=== PATIENT | male | born 2000 | race Caucasian/White ===

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

== ENCOUNTER → 2023-04-19 | Outpatient (REF) | payer OTHER ==
[~2023-04-19] MED LIST changes: -DOXY-350 PO; +DOXY-444 PO; +MONT-5 PO; -PREV15CA18 PO; +PREV15CA24 PO; -SING10TA32 PO
[2023-04-19 18:56] LABS: ALBUMIN 3.6 G/DL (3.2-5.2); BILIRUBIN,DIRECT 0.3 MG/DL (<0.4); BILIRUBIN,TOTAL 0.7 MG/DL (0.3-1.2); TOTAL PROTEIN 6.8 G/DL (5.7-8.2)
== END ==
LOC: M LABDRWAD 17:55
PROVIDERS: ATTEND Internal Medicine Pulmonary Disease
DX: R79.89 Other specified abnormal findings of blood chemistry (principal); E84.9 Cystic fibrosis, unspecified

== ENCOUNTER → 2023-05-03 | Outpatient (REF) | payer OTHER ==
[2023-05-03 21:02] LABS: ALBUMIN 3.3 G/DL (3.2-5.2); BILIRUBIN,DIRECT 0.2 MG/DL (<0.4); BILIRUBIN,TOTAL 0.6 MG/DL (0.3-1.2); TOTAL PROTEIN 7.2 G/DL (5.7-8.2)
== END ==
LOC: M LAB REF 20:44
PROVIDERS: ATTEND Nurse Practitioner Adult Health
DX: E84.9 Cystic fibrosis, unspecified (principal); R79.89 Other specified abnormal findings of blood chemistry

== ENCOUNTER → 2023-09-03 | Outpatient (REF) | payer OTHER ==
[2023-09-03 14:18] LABS: BILIRUBIN,DIRECT 0.3 MG/DL (<0.4)
== END ==
LOC: M LABDRWAD 12:30
PROVIDERS: ATTEND Nurse Practitioner Adult Health
DX: E84.9 Cystic fibrosis, unspecified (principal); R79.89 Other specified abnormal findings of blood chemistry

== ENCOUNTER → 2023-09-29 | Outpatient (REF) | payer OTHER ==
[2023-09-29 14:26] LABS: ALBUMIN 3.1 G/DL (3.2-5.2); BILIRUBIN,DIRECT 0.3 MG/DL (<0.4); BILIRUBIN,TOTAL 0.6 MG/DL (0.3-1.2); TOTAL PROTEIN 5.9 G/DL (5.7-8.2)
== END ==
LOC: M LABDRWAD 13:10
PROVIDERS: ATTEND Internal Medicine Pulmonary Disease
DX: E84.9 Cystic fibrosis, unspecified (principal); K86.89 Other specified diseases of pancreas

== ENCOUNTER 2023-10-10 06:51 | Inpatient (IN) | payer OTHER ==
[~2023-10-10] VITALS: Ht 167.6 cm; Wt 59.4 kg
[~2023-10-10 06:51] MED LIST changes: +DOXY-440 PO; -DOXY-444 PO
[2023-10-10] MEDS: ONDANSETRON 4MG 2ML VIAL IV ONE ×2 (07:33→11:33)
[2023-10-10] MEDS: NS 1,000 ML IV ONE (07:33)
[2023-10-10 07:38] LABS: BASO % 0.3 % (0.0-1.0); EOS # 0.1 10^3/uL (0.0-0.5); EOS % 1.3 % (0.0-3.0); HEMOGLOBIN 17.1 g/dl (13.5-17.5); LYMPH # 1.6 10^3/uL (1.5-5.0); LYMPH % 16.5 % (24.0-44.0); MEAN CORPUSCULAR HEMOGLOBIN 31.1 pg (27.0-33.0); MEAN CORPUSCULAR HGB CONC 36.4 g/dl (32.0-36.5); MEAN CORPUSCULAR VOLUME 85.5 fl (80.0-96.0); MONO # 0.7 10^3/uL (0.0-0.8); MONO % 6.9 % (2.0-8.0); NEUTROPHILS # 7.1 10^3/uL (1.5-8.5); NEUTROPHILS % 74.7 % (36.0-66.0); PLATELET COUNT, AUTOMATED 291 10^3/uL (150-450); WHITE BLOOD COUNT 9.5 10^3/uL (4.0-10.0)
[2023-10-10] MEDS: KETOROLAC 30 MG/ML 1ML VIAL IV ONE (07:58)
[2023-10-10 08:04] LABS: LIPASE 13 U/L (12-53)
[2023-10-10 08:08] LABS: ALBUMIN 3.8 G/DL (3.2-5.2); ALKALINE PHOSPHATASE 179 U/L (46-116); ALT/SGPT 163 U/L (7.0-40); AST/SGOT 30 U/L (<34); BILIRUBIN,DIRECT 0.5 MG/DL (<0.4); BILIRUBIN,TOTAL 1.3 MG/DL (0.3-1.2)
[2023-10-10 08:13] LABS: TOTAL PROTEIN 6.7 G/DL (5.7-8.2)
[2023-10-10 08:31] LABS: BLOOD UREA NITROGEN 14 MG/DL (9-23); CALCIUM LEVEL 9.4 MG/DL (8.5-10.1); CARBON DIOXIDE LEVEL 28 MMOL/L (20-31); CHLORIDE LEVEL 98 MMOL/L (98-107); CREATININE FOR GFR 0.64 MG/DL (0.70-1.30); GLOMERULAR FILTRATION RATE > 60.0 (>60); GLUCOSE, FASTING 357 MG/DL (60-100); POTASSIUM SERUM 4.6 MMOL/L (3.5-5.1); SODIUM LEVEL 133 MMOL/L (136-145)
[2023-10-10] MEDS ORDERED: ISOVUE-370 76% 100ML VIAL As Ordered ONE (09:13)
[2023-10-10] MEDS ORDERED: DEXTROSE 50% 50ML SYRINGE IV PRN (11:30)
[2023-10-10] MEDS ORDERED: ONDANSETRON 4MG 2ML VIAL IV PRN (11:30)
[2023-10-10] MEDS ORDERED: GLUCAGON INJ 1MG VIAL SC PRN (11:30)
[2023-10-10] MEDS: NS 1,000 ML IV SCH (12:40)
[2023-10-10] MEDS: LEVEMIR (INSULIN DETEMIR) 1 UNITS/0.01ML SC ONE (12:41)
[2023-10-10] MEDS: INSULIN LISPRO (NovoLOG) PER UNIT SC SCH (12:51)
[2023-10-10] MEDS ORDERED: AZIT-10 GT (13:26)
[2023-10-10] MEDS ORDERED: AZIT-12 PO (13:26)
[2023-10-10] MEDS ORDERED: PREV15TA2 PO (13:32)
[2023-10-10] MEDS ORDERED: [UNRECOGNIZED DRUG - CODE] INH (13:34)
[2023-10-10 15:05] VITALS: BP 123/79; TEMP 98.6; O2SAT 98
[2023-10-10] MEDS ORDERED: [UNRECOGNIZED DRUG - CODE] IN (16:35)
[2023-10-10] MEDS ORDERED: ELEX1TAB PO (16:45)
[2023-10-10] MEDS ORDERED: INSUHUMDS SC (16:47)
[2023-10-10] MEDS ORDERED: HOME MED LIST COMPLETE! XX SCH (16:55)
[2023-10-10] MEDS: PANTOPRAZOLE 40MG VIAL IV SCH (17:15)
[2023-10-10] MEDS: MONTELUKAST 10 MG TAB PO SCH (17:47)
[2023-10-10] MEDS: KETOROLAC 30 MG/ML 1ML VIAL IV PRN (17:48)
[2023-10-10] MEDS: DORNASE INHALATION SOLN 1MG/ML 2.5 ML AMP INH SCH (19:52)
[2023-10-10] MEDS: SYMBICORT 160/4.5MCG INHALER 6GM INH SCH (19:52)
[2023-10-10 20:00] VITALS: BP 111/69; TEMP 98.8; O2SAT 98
[2023-10-10] MEDS ORDERED: DORNASE INHALATION SOLN 1MG/ML 2.5 ML AMP INH SCH (21:00)
[2023-10-10] MEDS ORDERED: LEVEMIR (INSULIN DETEMIR) 1 UNITS/0.01ML SC SCH (21:00)
[2023-10-10] MEDS: ENOXAPARIN 40MG/0.4ML SYRINGE (J1650 PER 10MG) SC SCH (21:49)
[2023-10-10] MEDS: TRIKAFTA PO SCH (21:49)
[2023-10-10] MEDS: LEVEMIR (INSULIN DETEMIR) 1 UNITS/0.01ML SC SCH (22:28)
[2023-10-11] MEDS: D5W/LR 1,000 ML IV SCH (05:50)
[2023-10-11 06:09] LABS: HEMATOCRIT 39.6 % (42.0-52.0); MEAN CORPUSCULAR HEMOGLOBIN 31.8 pg (27.0-33.0); MEAN CORPUSCULAR HGB CONC 35.9 g/dl (32.0-36.5); MEAN CORPUSCULAR VOLUME 88.6 fl (80.0-96.0); PLATELET COUNT, AUTOMATED 250 10^3/uL (150-450); RED BLOOD COUNT 4.47 10^6/uL (4.30-6.10); WHITE BLOOD COUNT 4.8 10^3/uL (4.0-10.0)
[2023-10-11 06:14] VITALS: BP 102/56; TEMP 99; O2SAT 98
[2023-10-11 06:18] LABS: HEMOGLOBIN 14.2 g/dl (13.5-17.5)
[2023-10-11 06:45] LABS: BLOOD UREA NITROGEN 19 MG/DL (9-23); CALCIUM LEVEL 7.8 MG/DL (8.5-10.1); CARBON DIOXIDE LEVEL 29 MMOL/L (20-31); CHLORIDE LEVEL 110 MMOL/L (98-107); CREATININE FOR GFR 0.84 MG/DL (0.70-1.30); GLOMERULAR FILTRATION RATE > 60.0 (>60); GLUCOSE, FASTING 63 MG/DL (60-100); MAGNESIUM LEVEL 1.6 MG/DL (1.8-2.4); POTASSIUM SERUM 3.7 MMOL/L (3.5-5.1); SODIUM LEVEL 146 MMOL/L (136-145)
[2023-10-11] MEDS: AZITHROMYCIN 250MG TABLET PO SCH (08:32)
[2023-10-11] MEDS: TRIKAFTA PO SCH (08:32)
[2023-10-11 14:00] VITALS: BP 102/59; TEMP 98.6; O2SAT 95
[2023-10-11] MEDS: INSULIN LISPRO (NovoLOG) PER UNIT SC SCH ×2 (17:51→21:24)
[2023-10-11 21:00] VITALS: BP 103/60; TEMP 98.2; O2SAT 95
[2023-10-11] MEDS: LEVEMIR (INSULIN DETEMIR) 1 UNITS/0.01ML SC SCH (21:24)
[2023-10-12] MEDS: GLUCOSE 4 GM CHEW PO PRN (07:03)
[2023-10-12 07:16] LABS: BASO % 0.2 % (0.0-1.0); EOS # 0.1 10^3/uL (0.0-0.5); EOS % 1.7 % (0.0-3.0); HEMATOCRIT 38.1 % (42.0-52.0); HEMOGLOBIN 13.3 g/dl (13.5-17.5); LYMPH # 1.6 10^3/uL (1.5-5.0); LYMPH % 34.5 % (24.0-44.0); MEAN CORPUSCULAR HEMOGLOBIN 31.5 pg (27.0-33.0); MEAN CORPUSCULAR HGB CONC 34.9 g/dl (32.0-36.5); MEAN CORPUSCULAR VOLUME 90.3 fl (80.0-96.0); MONO # 0.6 10^3/uL (0.0-0.8); MONO % 11.8 % (2.0-8.0); NEUTROPHILS # 2.4 10^3/uL (1.5-8.5); NEUTROPHILS % 51.6 % (36.0-66.0); PLATELET COUNT, AUTOMATED 227 10^3/uL (150-450); RED BLOOD COUNT 4.22 10^6/uL (4.30-6.10); WHITE BLOOD COUNT 4.7 10^3/uL (4.0-10.0)
[2023-10-12 07:46] LABS: ALBUMIN 2.9 G/DL (3.2-5.2); ALKALINE PHOSPHATASE 117 U/L (46-116); ALT/SGPT 73 U/L (7.0-40); AST/SGOT 17 U/L (<34); BILIRUBIN,TOTAL 0.9 MG/DL (0.3-1.2); BLOOD UREA NITROGEN 10 MG/DL (9-23); CALCIUM LEVEL 8.1 MG/DL (8.5-10.1); CARBON DIOXIDE LEVEL 29 MMOL/L (20-31); CHLORIDE LEVEL 107 MMOL/L (98-107); CREATININE FOR GFR 0.61 MG/DL (0.70-1.30); GLOMERULAR FILTRATION RATE > 60.0 (>60); GLUCOSE, FASTING 59 MG/DL (60-100); MAGNESIUM LEVEL 1.8 MG/DL (1.8-2.4); POTASSIUM SERUM 3.8 MMOL/L (3.5-5.1); SODIUM LEVEL 140 MMOL/L (136-145); TOTAL PROTEIN 5.4 G/DL (5.7-8.2)
[2023-10-12] MEDS ORDERED: BASA100I SC (14:05)
[2023-10-12 14:30] VITALS: BP 121/70; TEMP 97.8; O2SAT 97
== END 2023-10-12 16:01 | disposition home or self-care (01) | DRG 247 ==
LOC: M ED 06:51 → M ED INP 11:26 → M MSPAV 15:15
PROVIDERS: ADMIT Internal Medicine; ATTEND Internal Medicine
DX: K56.609 Unspecified intestinal obstruction, unspecified as to partial versus complete obstruction (principal); E84.8 Cystic fibrosis with other manifestations; E08.649 Diabetes mellitus due to underlying condition with hypoglycemia without coma; E87.1 Hypo-osmolality and hyponatremia; K76.9 Liver disease, unspecified; Z79.2 Long term (current) use of antibiotics; Z79.4 Long term (current) use of insulin; Z79.899 Other long term (current) drug therapy; Z91.030 Bee allergy status

== ENCOUNTER → 2023-12-01 | Outpatient (REF) | payer OTHER, MEDICAID ==
[~2023-12-01] MED LIST changes: +AZIT-10 GT; +AZIT-12 PO; +ELEX1TAB PO; +INSUHUMDS SC; +PREV15TA2 PO; +[UNRECOGNIZED DRUG - CODE] IN; +[UNRECOGNIZED DRUG - CODE] INH
[2023-12-01 18:53] LABS: ALBUMIN 4.1 G/DL (3.2-5.2); BILIRUBIN,DIRECT 0.2 MG/DL (<0.4); BILIRUBIN,TOTAL 0.8 MG/DL (0.3-1.2); TOTAL PROTEIN 7.5 G/DL (5.7-8.2)
== END ==
LOC: M LABDRWAD 17:17
PROVIDERS: ATTEND Nurse Practitioner Adult Health
DX: R74.01 Elevation of levels of liver transaminase levels (principal)

== ENCOUNTER → 2024-02-09 | Outpatient (REF) | payer OTHER ==
[2024-02-09 18:14] LABS: ALBUMIN 3.5 G/DL (3.2-5.2); BILIRUBIN,DIRECT 0.2 MG/DL (<0.4); BILIRUBIN,TOTAL 0.4 MG/DL (0.3-1.2); TOTAL PROTEIN 7.5 G/DL (5.7-8.2)
== END ==
LOC: M LABDRWAD 17:24
PROVIDERS: ATTEND Nurse Practitioner Adult Health
DX: R74.01 Elevation of levels of liver transaminase levels (principal)